=== PATIENT | male | born 1990 | race Caucasian/White ===

== ENCOUNTER 2016-07-12 15:33 | Emergency (ER) | payer OTHER | END 2016-07-12 16:50 | disposition home or self-care (01) | LOC: ER 15:33 | DX: S97.112A Crushing injury of left great toe, initial encounter (principal); J45.909 Unspecified asthma, uncomplicated; F84.5 Asperger's syndrome; I50.9 Heart failure, unspecified; Z95.0 Presence of cardiac pacemaker; Z79.01 Long term (current) use of anticoagulants; Z79.899 Other long term (current) drug therapy; Z88.5 Allergy status to narcotic agent; W22.8XXA Striking against or struck by other objects, initial encounter; Y92.009 Unspecified place in unspecified non-institutional (private) residence as the place of occurrence of the external cause ==